=== PATIENT | male | born 1985 | race Caucasian/White ===

== ENCOUNTER 2020-05-29 22:05 | Emergency (ER) | payer SELFPAY ==
[~2020-05-29] VITALS: Ht 177 cm; Wt 90.0 kg
[2020-05-29 22:11] VITALS: BP 138/98
[2020-05-29] MEDS ORDERED: DOCUSATE SODIUM 10 MG/ML 10 ML UDC (COLACE) EACH EAR ONE (22:30)
--- NOTE | 2020-05-29 22:42 | ED EENT ---
History of Present Illness General Chief Complaint: Ear Problems Stated Complaint: EAR PAIN Nursing Triage Note: Pt here with right ear pain x 3 days; states that he tried some OTC ear drops and also used q-tips. States his ear feels warm. Source: patient Exam Limitations: no limitations History of Present Illness Date Seen by Provider: May 29, 2020 Time Seen by Provider: 22:16 Initial Comments This 34-year-old gentleman presents to the emergency room with complaints of right ear pain for 3 days. He has tried using Q-tips and kiys-zxh-dqbzjam eardrops. He also took a dose of an old antibiotic he had at home. Symptoms have not improved. He denies fever but states the right ear feels warm. Allergies and Home Medications Allergies Coded Allergies: aspirin (Verified Allergy, Mild, NAUSEA, 05/29/20) Patient Home Medication List Home Medication List Reviewed: Yes Review of Systems Review of Systems Constitutional: no symptoms reported Eyes: No Symptoms Reported Ears: See HPI Nose: no symptoms reported Mouth: no symptoms reported Throat: no symptoms reported Respiratory: no symptoms reported Cardiovascular: no symptoms reported Gastrointestinal: no symptoms reported Skin: no symptoms reported Neurological: No Symptoms Reported Hematologic/Lymphatic: No Symptoms Reported Immunological/Allergic: no symptoms reported Past Vdowido-Shrqjv-Pmbnjh Hx Past Med/Social Hx: Reviewed Nursing Past Med/Soc Hx Patient Social History Alcohol Use: Denies Use Recreational Drug Use: No Smoking Status: Current Everyday Smoker Type Used: Cigarettes Recent Foreign Travel: No Contact w/Someone Who Travel: No Recent Infectious Disease Expo: No Recent Hopitalizations: No Seasonal Allergies Seasonal Allergies: No Past Medical History Surgeries: No Respiratory: No Cardiac: No Neurological: No Genitourinary: No Gastrointestinal: No Musculoskeletal: Yes Fractures Endocrine: No HEENT: No Cancer: No Psychosocial: No Integumentary: No Physical Exam Vital Signs Vital Signs - First Documented 05/29/20 22:11 Temp 36.7 Pulse 74 Resp 18 B/P (MAP) 138/98 (111) O2 Delivery Room Air Height, Weight, BMI Height: '" Weight: lbs. oz. kg; 28.00 BMI Method: General Appearance: WD/WN, no apparent distress Eyes: bilateral eye normal inspection, bilateral eye EOMI Ears: bilateral ear auricle normal, bilateral ear other (extensive cerumen impaction bilaterally with no inflammatory changes and no drainage. Right ear tender to touch with the speculum) Nose: normal inspection Neck: normal inspection Cardiovascular: regular rate, rhythm, no edema, no murmur Respiratory: lungs clear, normal breath sounds, no respiratory distress Neurologic/Psychiatric: color television console monitor II-XII nml as tested, no motor/sensory deficits, alert, normal mood/affect, oriented x 3 Skin: normal color, warm/dry Progress/Results/Core Measures Results/Orders My Orders Orders - JOLLY LESTER MD Docusate Sodium Oral Solution (Colace Or (05/29/20 22:30) Medications Given in ED Current Medications Medications Dose Ordered Sig/Jemal Route Start Time Stop Time Status Last Admin Dose Admin Docusate Sodium 50 mg ONCE ONCE EACH EAR 05/29/20 22:30 05/29/20 22:31 DC 05/29/20 22:40 100 MG Vital Signs/I&O 05/29/20 22:11 Temp 36.7 Pulse 74 Resp 18 B/P (MAP) 138/98 (111) O2 Delivery Room Air Blood Pressure Mean: 111 Progress Progress Note : Progress Note Each ear was soaked with Colace and then irrigated with a mixture of warm water, hydrogen peroxide, and chlorhexidine. The right ear was completely evacuated. The left ear was partially evacuated such that the TM was visible. Patient tolerated the procedure well with immediate improvement. A 60 mL syringe was used with an 18 g IV catheter for the irrigation taking great care to not insert the catheter near the TM. Departure Impression Primary Impression: Otalgia, right ear Additional Impression: Impacted cerumen, bilateral Disposition: 01 HOME, SELF-CARE Condition: Improved Departure-Patient Inst. Decision time for Depature: 23:23 Patient Instructions: Ear Wax Impaction Add. Discharge Instructions: Follow-up with your primary care provider or return to the emergency room if you have further problems or concerns. Avoid inserting Q-tips deep into your ear. Only use Q-tips to remove earwax from around the rim of your ear or canal. You may remove earwax at home by using anoa-fbf-fwsmihd earwax drops or by dropping a couple drops of mineral oil into the ear canal once or twice weekly to soften the ear wax and allow it to come out naturally. All discharge instructions reviewed with patient and/or family. Voiced understanding. JOLLY LESTER MD May 29, 2020 22:42
== END 2020-05-29 23:27 | disposition home or self-care (01) ==
LOC: ER 22:07
DX: H92.01 Otalgia, right ear (principal); H61.23 Impacted cerumen, bilateral; F17.210 Nicotine dependence, cigarettes, uncomplicated; Z88.8 Allergy status to other drugs, medicaments and biological substances
CPT/HCPCS: 99282

== ENCOUNTER 2021-09-05 18:03 | Emergency (ER) | payer MEDICAID ==
[~2021-09-05] VITALS: Ht 177 cm; Wt 100.0 kg
--- NOTE | 2021-09-05 18:31 | ED Cardiac General ---
History of Present Illness General Chief Complaint: Cardiac/General Problems Stated Complaint: CHEST TIGHTEST Nursing Triage Note: ARRIVED VIA AMB TO ROOM 10 WITH COMPLAINTS OF CHEST PAIN X1 WEEK. Source: patient Exam Limitations: no limitations (BRE CASTILLO APRN) History of Present Illness Date Seen by Provider: Sep 05, 2021 Time Seen by Provider: 18:29 Initial Comments To ER with left-sided chest pain. He noticed this this morning upon awakening and has been constant and progressive throughout the day. He has associated palpitations. No shortness of breath. No fevers or chills. He has had general fatigue for about 2 years. He does have a productive cough. He smokes 1 pack of cigarettes per day. Timing/Duration: changing over time Severity: moderate Location: central Activities at Onset: none NTG SL ONLINE CONTENT DEVELOPER: No ASA po ONLINE CONTENT DEVELOPER: No Associated Systoms: Chest Pain (BRE CASTILLO APRN) Allergies and Home Medications Allergies Coded Allergies: aspirin (Verified Allergy, Mild, NAUSEA, 05/29/20) Patient Home Medication List Home Medication List Reviewed: Yes (BRE CASTILLO APRN) Albuterol Sulfate (Proair Hfa) 1 Puff Puff, 2 PUFF IH Q4H PRN for WHEEZING Prescribed by: BRE CASTILLO on 09/05/211908 Cefuroxime Axetil (Cefuroxime) 500 Mg Tablet, 500 MG PO BID Prescribed by: BRE CASTILLO on 09/05/211908 Prednisone (Prednisone) 20 Mg Tab, 40 MG PO DAILY Prescribed by: BRE CASTILLO on 09/05/211908 Review of Systems Review of Systems Constitutional: see HPI EENTM: No Symptoms Reported Respiratory: No Symptoms Reported Cardiovascular: See HPI, Chest Pain, Palpitations Gastrointestinal: No Symptoms Reported Genitourinary: No Symptoms Reported Musculoskeletal: no symptoms reported Skin: no symptoms reported Psychiatric/Neurological: No Symptoms Reported Endocrine: No Symptoms Reported Hematologic/Lymphatic: No Symptoms Reported (BRE CASTILLO APRN) Past Peafvfe-Qehjxp-Zoqlvq Hx Patient Social History Smoking Status: Current Everyday Smoker Substance use?: Yes Substance type: Marijuana Alcohol Use?: No (BRE CASTILLO APRN) Seasonal Allergies Seasonal Allergies: No (BRE CASTILLO APRN) Past Medical History Surgeries: No Respiratory: No Cardiac: No Neurological: No Genitourinary: No Gastrointestinal: No Musculoskeletal: Yes Fractures Endocrine: No HEENT: No Cancer: No Psychosocial: No Integumentary: No (BRE CASTILLO APRN) Physical Exam Vital Signs Vital Signs - First Documented 09/05/21 09/05/21 18:15 19:14 Temp 36.9 Pulse 78 Resp 16 B/P (MAP) 135/98 (110) Pulse Ox 98 O2 Delivery Room Air (PETROS,HAROLDO K DO) Vital Signs Capillary Refill : Less Than 3 Seconds (BRE CASTILLO APRN) Height, Weight, BMI Height: '" Weight: lbs. oz. kg; 31.00 BMI Method: General Appearance: No Apparent Distress, WD/WN Neck: Full Range of Motion, Normal Inspection Respiratory: No Accessory Muscle Use, No Respiratory Distress Cardiovascular: Regular Rate, Rhythm, Normal Peripheral Pulses Gastrointestinal: Normal Bowel Sounds, Non Tender, Soft Extremity: Normal Capillary Refill, Normal Inspection Neurologic/Psychiatric: Alert, Oriented x3 Skin: Normal Color, Warm/Dry (BRE CASTILLO APRN) Progress/Results/Core Measures Results/Orders Lab Results Laboratory Tests Test 09/05/21 18:11 09/05/21 18:22 Range/Units White Blood Count 10.8 4.3-11.0 10^3/uL Red Blood Count 5.80 H 4.30-5.52 10^6/uL Hemoglobin 17.9 H 13.3-17.7 g/dL Hematocrit 53 40-54 % Mean Corpuscular Volume 91 80-99 fL Mean Corpuscular Hemoglobin 31 25-34 pg Mean Corpuscular Hemoglobin Concent 34 32-36 g/dL Red Cell Distribution Width 11.9 10.0-14.5 % Platelet Count 232 130-400 10^3/uL Mean Platelet Volume 9.5 9.0-12.2 fL Immature Granulocyte % (Auto) 0 % Neutrophils (%) (Auto) 65 42-75 % Lymphocytes (%) (Auto) 24 12-44 % Monocytes (%) (Auto) 9 0-12 % Eosinophils (%) (Auto) 2 0-10 % Basophils (%) (Auto) 0 0-10 % Neutrophils # (Auto) 7.1 1.8-7.8 10^3/uL Lymphocytes # (Auto) 2.6 1.0-4.0 10^3/uL Monocytes # (Auto) 0.9 0.0-1.0 10^3/uL Eosinophils # (Auto) 0.2 0.0-0.3 10^3/uL Basophils # (Auto) 0.0 0.0-0.1 10^3/uL Immature Granulocyte # (Auto) 0.0 0.0-0.1 10^3/uL Prothrombin Time 13.1 12.2-14.7 SEC INR Comment 1.0 0.8-1.4 Activated Partial Thromboplast Time 29 24-35 SEC Sodium Level 139 135-145 MMOL/L Potassium Level 4.0 3.6-5.0 MMOL/L Chloride Level 103 98-107 MMOL/L Carbon Dioxide Level 22 21-32 MMOL/L Anion Gap 14 5-14 MMOL/L Blood Urea Nitrogen 7 7-18 MG/DL Creatinine 0.97 0.60-1.30 MG/DL Estimat Glomerular Filtration Rate 87 BUN/Creatinine Ratio 7 Glucose Level 84 70-105 MG/DL Calcium Level 9.9 8.5-10.1 MG/DL Corrected Calcium 8.5-10.1 MG/DL Magnesium Level 2.0 1.6-2.4 MG/DL Total Bilirubin 0.4 0.1-1.0 MG/DL Aspartate Amino Transf (AST/SGOT) 20 5-34 U/L Alanine Aminotransferase (ALT/SGPT) 27 0-55 U/L Alkaline Phosphatase 59 40-136 U/L Myoglobin 70.1 10.0-92.0 NG/ML Troponin I < 0.028 <0.028 NG/ML Total Protein 7.9 6.4-8.2 GM/DL Albumin 4.6 H 3.2-4.5 GM/DL SARS-CoV-2 RNA (RT-PCR) Not Detected Not Detecte (HAROLDO MORRELL DO) Vital Signs/I&O 09/05/21 09/05/21 18:15 19:14 Temp 36.9 Pulse 78 80 Resp 16 16 B/P (MAP) 135/98 (110) 127/89 Pulse Ox 98 99 O2 Delivery Room Air Room Air (HAROLDO MORRELL DO) Blood Pressure Mean: 110 Departure Communication (Admissions) EKG at 1811 shows sinus rhythm at [address] segment changes no ectopy normal intervals (BRE CASTILLO APRN) Impression Primary Impression: Palpitations Additional Impression: Bronchitis Disposition: 01 HOME, SELF-CARE Condition: Stable Departure-Patient Inst. Decision time for Depature: 18:31 (BRE CASTILLO APRN) Referrals: NO,LOCAL PHYSICIAN (PCP/Family) Primary Care Physician Patient Instructions: Bronchitis, Adult ED Add. Discharge Instructions: 1. Return to ER for any concerns 2.Meds as directed All discharge instructions reviewed with patient and/or family. Voiced understanding. Scripts Albuterol Sulfate (PROAIR HFA) 1 Puff Puff 2 PUFF IH Q4H PRN for WHEEZING, #1 EA 1 PUFF = 90 MCG Prov: BRE CASTILLO APRN 09/05/21 Cefuroxime Axetil (Cefuroxime) 500 Mg Tablet 500 MG PO BID, #10 TAB Prov: BRE CASTILLO APRN 09/05/21 Prednisone (Prednisone) 20 Mg Tab 40 MG PO DAILY, #6 TAB 0 Refills Prov: BRE CASTILLO APRN 09/05/21 Work/School Note: Work Release Form Date Seen in the Emergency Department: Sep 05, 2021 Return to Work: Sep 07, 2021 ATTENDING PHYSICIAN NOTE: I WAS PHYSICALLY PRESENT ER PHYSICIAN WHEN THIS PATIENT WAS IN ER, BUT I WAS NOT INVOLVED IN ANY DECISION MAKING OR ANY CARE OF THIS PATIENT. (HAROLDO MORRELL DO) BRE CASTILLO APRN Sep 05, 2021 18:31 HAROLDO MORRELL DO Sep 06, 2021 02:52
[2021-09-05 18:32] LABS: BASOPHILS % (AUTO) 0 % (0-10); EOSINOPHILS # (AUTO) 0.2 10^3/uL (0.0-0.3); EOSINOPHILS % (AUTO) 2 % (0-10); HEMATOCRIT 53 % (40-54); HEMOGLOBIN 17.9 g/dL (13.3-17.7); LYMPHOCYTES # (AUTO) 2.6 10^3/uL (1.0-4.0); LYMPHOCYTES % (AUTO) 24 % (12-44); MEAN CORPUSCULAR HEMOGLOBIN 31 pg (25-34); MEAN CORPUSCULAR HGB CONC 34 g/dL (32-36); MEAN CORPUSCULAR VOLUME 91 fL (80-99); MEAN PLATELET VOLUME 9.5 fL (9.0-12.2); MONOCYTES # (AUTO) 0.9 10^3/uL (0.0-1.0); MONOCYTES % (AUTO) 9 % (0-12); NEUTROPHILS # (AUTO) 7.1 10^3/uL (1.8-7.8); NEUTROPHILS % (AUTO) 65 % (42-75); PLATELET COUNT 232 10^3/uL (130-400); WHITE BLOOD COUNT 10.8 10^3/uL (4.3-11.0)
[2021-09-05 18:37] LABS: PROTHROMBIN TIME PATIENT 13.1 SEC (12.2-14.7)
[2021-09-05 18:44] LABS: ALBUMIN 4.6 GM/DL (3.2-4.5); CHLORIDE 103 MMOL/L (98-107); SODIUM 139 MMOL/L (135-145)
[2021-09-05 18:45] LABS: CALCIUM 9.9 MG/DL (8.5-10.1)
[2021-09-05 18:46] LABS: GLUCOSE 84 MG/DL (70-105); TOTAL PROTEIN 7.9 GM/DL (6.4-8.2)
[2021-09-05 18:47] LABS: CARBON DIOXIDE 22 MMOL/L (21-32)
[2021-09-05 18:48] LABS: BILIRUBIN,TOTAL 0.4 MG/DL (0.1-1.0)
[2021-09-05 18:49] LABS: ALKALINE PHOSPHATASE 59 U/L (40-136)
[2021-09-05 18:50] LABS: CREATININE SERUM 0.97 MG/DL (0.60-1.30); GFR ESTIMATED 87
[2021-09-05 18:51] LABS: BUN/CREATININE RATIO 7
[2021-09-05 18:53] LABS: ALANINE AMINOTRANSFERASE 27 U/L (0-55)
--- NOTE | 2021-09-05 18:57 | Diagnostic Imaging Report ---
INDICATION: Chest pain and cough. AP view of chest is obtained. COMPARISON: No previous study is available for comparison at this time. FINDINGS: Heart size and pulmonary vasculature are within normal limits, and the lungs are clear, bilaterally. IMPRESSION: Unremarkable chest. Dictated by: Dictated on workstation # [id number]
[2021-09-05] MEDS ORDERED: RT-ALBUINH IH (19:09)
[2021-09-05] MEDS ORDERED: PRD20T PO (19:09)
[2021-09-05] MEDS ORDERED: CEFU500T63 PO (19:09)
[2021-09-05 19:14] VITALS: BP 127/89
== END 2021-09-05 19:18 | disposition home or self-care (01) ==
LOC: EDUNIT# 18:03 → ER 18:04
DX: J40 Bronchitis, not specified as acute or chronic (principal); F17.210 Nicotine dependence, cigarettes, uncomplicated; Z20.822 Contact with and (suspected) exposure to COVID-19
CPT/HCPCS: 36415; 71045; 80053; 83735; 83874; 84484; 85025; 85610; 85730; 87636; 93005; 93041

== ENCOUNTER → 2022-02-08 | Outpatient (CLI) | payer MEDICAID ==
[~2022-02-08] MED LIST: CEFU500T63 PO; PRD20T PO; RT-ALBUINH IH
== END ==
LOC: PREOP 08:08
PROVIDERS: ATTEND Surgery
DX: Z01.818 Encounter for other preprocedural examination (principal); K21.9 Gastro-esophageal reflux disease without esophagitis

== ENCOUNTER → 2022-02-25 | Outpatient (CLI) | payer MEDICAID ==
[~2022-02-25] MED LIST changes: +AMIT50TA3 PO; +IBUP-1780 PO; +OMEP20TA56 PO
[2022-02-25 11:01] VITALS: BP 118/70
== END ==
LOC: CARD 11:00
PROVIDERS: ATTEND Internal Medicine Cardiovascular Disease
DX: I10 Essential (primary) hypertension (principal); I25.10 Atherosclerotic heart disease of native coronary artery without angina pectoris
CPT/HCPCS: 93306; C8930

== ENCOUNTER 2022-03-05 12:27 | Day surgery (SDC) | payer MEDICAID ==
[~2022-03-05] VITALS: Ht 180 cm; Wt 91.1 kg
[2022-03-05] MEDS ORDERED: LACTATED RINGERS 1,000 ML IV STA (12:36)
[2022-03-05] MEDS ORDERED: LACTATED RINGERS 1,000 ML IV ONE (12:37)
[2022-03-05 12:45] VITALS: BP 126/80
[2022-03-05] MEDS ORDERED: HURRICAINE EXT TUBE (BENZOCAINE) XX PRN (12:45)
--- NOTE | 2022-03-05 12:58 | Progress Note-Pre Operative ---
Pre-Operative Progress Note H&P Reviewed The H&P was reviewed, patient examined and no changes noted. Date Seen by Provider: Mar 05, 2022 Time Seen by Provider: 12:57 Date H&P Reviewed: Mar 05, 2022 Time H&P Reviewed: 12:57 Pre-Operative Diagnosis: gerd, cough YULIYA POSADA DO Mar 05, 2022 12:58
[2022-03-05] MEDS ORDERED: proPOfol 200 MG/20 ML (DIPRIVAN) VIAL IV ONE (14:25)
--- NOTE | 2022-03-05 14:37 | Anesthesia-General Post-Op ---
MAC Patient Condition Mental Status/LOC: Same as Preop Cardiovascular: Satisfactory Nausea/Vomiting: Absent Respiratory: Satisfactory Pain: Controlled Complications: Absent Post Op Complications Complications None Follow Up Care/Instructions Patient Instructions None needed. Anesthesiology Discharge Order Discharge Order Patient is doing well, no complaints, stable vital signs, no apparent adverse anesthesia problems. No complications reported per nursing. GALEN SWEET CRNA Mar 05, 2022 14:37
[2022-03-05 14:40] VITALS: BP 119/70
[2022-03-05 15:05] VITALS: BP 108/75
[2022-03-05 15:25] VITALS: BP 108/75
--- NOTE | 2022-03-05 15:43 | Discharge Inst-Simple/Standard ---
Discharge Inst-Standard Patient Instructions/Follow Up Plan of Care/Instructions/FU: 2 weeks Kerry Activity as Tolerated: Yes Discharge Diet: Regular Diet YULIYA POSADA DO Mar 05, 2022 15:43
--- NOTE | 2022-03-06 00:40 | OPERATIVE REPORT ---
DATE OF SERVICE: 03/05/2022 PREOPERATIVE DIAGNOSES: Gastroesophageal reflux disease and cough. POSTOPERATIVE DIAGNOSIS: Gastritis. SURGEON: Yuliya Payne DO ANESTHESIA: Per [employer]IST. ESTIMATED BLOOD LOSS: None. COMPLICATIONS: None. PROCEDURE: EGD with biopsies. INDICATIONS: The patient is a 36-year-old male with longstanding GERD and cough. He understands risks and benefits of procedure and wishes to proceed. Consent was signed in the chart. DESCRIPTION OF PROCEDURE: The patient was taken to the endoscopy suite, placed in left lateral recumbent position. Timeout was performed. Scope was inserted into the mouth, down the esophagus, stomach and into the duodenum without difficulty. There were no polyps, masses or ulcerations within the duodenum. Scope was slowly retracted back to stomach where it was further insufflated. Changes of gastritis present throughout the stomach, no polyps, masses or ulcerations. Biopsy of the antrum and body were obtained. Scope was returned to its normal position and slowly withdrawn to distal esophagus. Biopsy of the GE junction was obtained. Scope was slowly retracted back to completely remove noting no other pathology. The patient tolerated the procedure well without any complications, taken to recovery room in stable condition. RECOMMENDATIONS: The patient on omeprazole 20 mg daily. Await biopsies. We will consider changing to Protonix. The patient will follow up in 2 weeks. Job ID: [id number] DocumentID: [id number] Dictated Date: 03/05/2022 15:46:21 Regulatory Consultant Date: 03/06/2022 00:40:05 Dictated By: YULIYA PAYNE DO
== END 2022-03-05 15:25 | disposition home or self-care (01) ==
LOC: ENDO 12:27
PROVIDERS: ATTEND Surgery
DX: K21.00 Gastro-esophageal reflux disease with esophagitis, without bleeding (principal); K29.70 Gastritis, unspecified, without bleeding